=== PATIENT | male | born 1980 | race Caucasian/White ===

== ENCOUNTER 2017-06-21 22:37 | Emergency (ER) | payer SELFPAY ==
[2017-06-21] MEDS ORDERED: SODIUM CHLORIDE 0.9% 10 ML VIAL ONE (22:40)
[2017-06-21] MEDS ORDERED: NALOXONE HCL INJ 1 MG/ML SYG ONE (22:41)
[2017-06-21] MEDS ORDERED: NALOXONE HCL INJ 1 MG/ML SYG IV ONE (22:45)
[2017-06-21] MEDS ORDERED: SODIUM CHLORIDE 0.9% 1000ML 1,000 ML IVS ONE (22:48)
[2017-06-21 23:22] VITALS: O2SAT 97
--- NOTE | 2017-06-21 23:32 | RAD ---
EXAM: Chest,1 View CLINICAL INDICATION: 36-year-old male with overdose. TECHNIQUE: Single view, AP portable chest was obtained. COMPARISON: None. FINDINGS: Unremarkable cardiac and mediastinal silhouette. Heart size is normal. Lungs are clear without focal opacity, pneumothorax or pleural effusions. The visualized bones are within normal limits. IMPRESSION: No acute cardiopulmonary abnormalities. Electronically signed by: Renetta Hackett MD 06/21/2017 11:31 PM [employer] Workstation: [id number]
--- NOTE | 2017-06-21 23:55 | ED.PDOC ---
History of Present Illness - General Chief Complaint: Drug or Alcohol Abuse Stated Complaint: POSS OD Time Seen by Provider: 06/21/17 22:46 Source: RN notes reviewed, Vital Signs reviewed, family - Exam Limitations: clinical condition, intoxication, physical impairment - History of Present Illness Initial Comments: David Jacob 36 y/o male brought by girlfriend to [facility] after drinking 4 cans of beer then swallowing unknown amount of hydrocodone/acetominophen 5mg/325mg tonight after they had an argument. The name on the medicine prescribed for his son.He was found on the floor by the and was then bought here by POV. Timing/Duration: just prior to arrival Severity: moderate Associated Symptoms: ingestion Allergies/Adverse Reactions: Allergies NO KNOWN ALLERGY Allergy (Verified 06/21/17 22:57) Home Medications: Ambulatory Orders NK [NK] 06/21/17 Review of Systems - Review of Systems Unable to Obtain Due To: clinical condition Past Medical History (General) - Patient Medical History Hx Seizures: No Hx Asthma: No Hx Cardiac Disorders: No Hx Congestive Heart Failure: No Hx Hypertension: No Hx Diabetes: No Hx Cancer: No - Vaccination History Hx Tetanus, Diphtheria Vaccination: - UNKNOWN Hx Influenza Vaccination: - UNKNOWN Immunizations Up to Date: - UNKNOWN - Social History Hx Tobacco Use: Yes - DIPS Hx Alcohol Use: Yes - 4 OR MORE BEERS TODAY Hx Substance Use: No - PER GIRLFRIEND Family Medical History - Family History Mother Family History: Unknown Physical Exam - Physical Exam General Appearance: No apparent distress, Lethargic Eyes, Ears, Nose, Throat Exam: PERRL/EOMI, normal ENT inspection, pharynx normal Neck: full range of motion, supple Respiratory: lungs clear, normal breath sounds, no respiratory distress Cardiovascular/Chest: normal peripheral pulses, regular rate, rhythm, no murmur Peripheral Pulses: radial,right: 2+, radial,left: 2+ Gastrointestinal/Abdominal: normal bowel sounds, soft, no organomegaly Extremities Exam: no evidence of injury Neurological: withdraws to pain, other - lethargic Skin Exam: normal color, warm/dry Progress - Progress Progress: 06/21/17 23:57 Last Vital Signs Temp 97.5 F L 06/21/17 23:01 Pulse 66 06/21/17 23:23 Resp 18 06/21/17 23:23 BP 129/77 06/21/17 23:15 Pulse Ox 97 06/21/17 23:15 06/22/17 02:28 Had hugo cath out going to the bathroom w/o assistance to urinate and had bowel movement 06/22/17 02:31 [facility] offered open access intake but patient declined wants to go home with given referral to [facility] 06/22/17 02:39 - Results/Orders Results/Orders: 2359 hour more alert,refuses to talk about incident,eyes wide open,agitated - EKG/XRAY/CT EKG: Sinus Comments: heart rate-61;IRBBB CT Ordered: No Departure - Departure Clinical Impression: History of depression Overdose Qualifiers: Encounter type: initial encounter Injury intent: undetermined intent Qualified Code(s): T50.904A - Poisoning by unspecified drugs, medicaments and biological substances, undetermined, initial encounter Time of Disposition: 02:31 Disposition: Discharge to Home or Self Care Condition: Fair Departure Forms: ED Discharge - Pt. Copy, Patient Portal Self Enrollment Instructions: DI for Drug Overdose in Adults, DI for Depression -- Adult, Depression, Symptoms of Depression in Men, Depression in Men: How Is It Different? Home Medications: Ambulatory Orders NK [NK] 06/21/17 Additional Instructions: RETURN TO EMERGENCY ROOM NEEDED
[2017-06-22 02:53] VITALS: BP 97/52; TEMP 97
== END 2017-06-22 02:53 | disposition home or self-care (01) ==
LOC: ER 22:37
DX: T50.904A Poisoning by unspecified drugs, medicaments and biological substances, undetermined, initial encounter (principal); F32.9 Major depressive disorder, single episode, unspecified; I45.10 Unspecified right bundle-branch block; F17.220 Nicotine dependence, chewing tobacco, uncomplicated; Y92.009 Unspecified place in unspecified non-institutional (private) residence as the place of occurrence of the external cause
CPT/HCPCS: 36415; 71010; 80053; 80307; 80320; 80329; 81001; 85025; 93005; J2310; J7030